=== PATIENT | female | born 1955 | race Asian ===

== ENCOUNTER 2016-11-05 06:46 | Day surgery (SDC) | payer OTHER ==
[~2016-11-05] VITALS: Ht 154.9 cm; Wt 85.4 kg
[2016-11-05] MEDS ORDERED: ADVAIR (07:04)
[2016-11-05] MEDS ORDERED: LOSARTAN (07:04)
[2016-11-05] MEDS ORDERED: AMLODIPINE (07:04)
[2016-11-05] MEDS ORDERED: ALBUTEROL (07:04)
[2016-11-05] MEDS ORDERED: OMEPRAZOLE (07:04)
[2016-11-05 07:12] VITALS: Ht 154.9 cm; Wt 85.4 kg
[2016-11-05 07:46] VITALS: BP 129/84; PULSE 79; RESP 18
[2016-11-05] MEDS ORDERED: PROPOFOL 40 ML ONE (07:56)
[2016-11-05] MEDS ORDERED: LIDOCAINE 2% (SDV) 5 ML INJ ONE (07:56)
--- NOTE | 2016-11-05 08:23 | OPPN ---
Date/Time of Note Date/Time of Note DATE: 11/05/16 TIME: 08:21 Operative Report Preoperative Diagnosis Abdominal pain Gastroesophageal reflux disease Internal hemorrhoids Postoperative Diagnosis Hiatal hernia Gastroesophageal reflux disease Gastritis with erosions Operation/Procedure Performed Esophagogastroduodenoscopy and biopsy Colonoscopy and biopsy Provider: VIVEK CHADWICK MD Anesthesia Type: MAC Estimated blood loss: none Transfusion Required: no Specimens Gastric mucosal biopsy Random colon biopsies Grafts/Implants: none Complications: no VIVEK CHADWICK MD Nov 05, 2016 08:23
[2016-11-05 08:40] VITALS: BP 149/72; PULSE 75; RESP 14
--- NOTE | 2016-11-05 08:45 | GILP ---
DATE OF PROCEDURE: 11/05/2016 PROCEDURE PERFORMED: 1. Esophagogastroduodenoscopy and biopsy. 2. Colonoscopy and biopsy. SURGEON: Abigail Rangel MD. PREOPERATIVE DIAGNOSES: 1. Abdominal pain. 2. Chronic heartburn. 3. Change in the bowel habits. 4. History of colon cancer. POSTOP DIAGNOSES: 1. Large hiatal hernia. 2. Gastroesophageal reflux disease. 3. Gastritis with erosions. 4. Gastric mucosal biopsies were taken for Helicobacter pylori test. 5. Colonoscopy all the way to the anastomotic area. 6. Random biopsies were taken to rule out microscopic colitis. 7. Internal hemorrhoids. INDICATION: Ms. Edith Isidro is a 61-year-old female patient who had upper abdominal pain and chronic heartburn not responding to therapy. She also noticed change in the bowel habits with history of diarrhea. The patient is status post surgery for colon cancer. The procedures and possible complications were well explained to the patient. The patient understood and consented to the procedures. DESCRIPTION OF PROCEDURE: Under the influence of anesthesia, the gastroscope was carefully introduced into the esophagus and under direct vision, it was advanced to the stomach, into the pylorus, into the duodenal bulb, and descending duodenum. FINDINGS: Esophagus: Patient with a large hiatal hernia and gastroesophageal reflux disease. Stomach: She had gastritis with erosions. Gastric mucosal biopsies were taken for H pylori test. Duodenum was normal. The colonoscope was carefully introduced in the rectum and under direct vision, it was advanced all the way to the anastomotic area. FINDINGS: The patient had internal hemorrhoids. Random biopsies were taken to rule out microscopic colitis. She tolerated the procedures very well. There was no complication from the procedures. At the end of procedure, she was awake with stable vital signs and she was discharged home in the care of her family. IMPRESSION: Please see postop diagnoses. PLAN: 1. Continue omeprazole. 2. Add Zantac 300 mg p.o. at bedtime. 3. Await histopathology reports. 4. Next screening colonoscopy in 10 years. Dictated By: MD JOSE Baez/yuki/olive /Document#: [id number]
== END 2016-11-05 16:16 | disposition home or self-care (01) ==
LOC: GIL 06:46 → EDBD 08:30 → GIL 16:16
PROVIDERS: ATTEND Internal Medicine Gastroenterology
DX: R19.4 Change in bowel habit (principal); K44.9 Diaphragmatic hernia without obstruction or gangrene; K21.9 Gastro-esophageal reflux disease without esophagitis; K29.60 Other gastritis without bleeding; K64.8 Other hemorrhoids; I10 Essential (primary) hypertension; E78.5 Hyperlipidemia, unspecified; E66.9 Obesity, unspecified; Z68.35 Body mass index [BMI] 35.0-35.9, adult
CPT/HCPCS: 43239; 45380; 87081; Z7610